=== PATIENT | female | born 1965 | race Caucasian/White ===

== ENCOUNTER 2025-01-23 16:23 | Outpatient (OUT) | payer BC, SELFPAY ==
--- NOTE | 2025-01-23 16:33 | XR_ITS ---
[place] [id number] Patient Name: VICK JEFFERSON MRN: [id number] date: 1965 Sex: F Assigned Patient Location: [facility] Current Patient Location: [facility] Accession/Order Number: [id number] Exam Date: 01/23/2025 16:48 Report Date: 01/23/2025 16:48 At the request of: UNRULY CAPPS DO Procedure: XR chest 2V Plain film chest 2 view HISTORY: Cough COMPARISON: None FINDINGS: SUPPORT DEVICES: None POSTSURGICAL CHANGES: None HEART: Within normal limits PULMONARY DEAN: Within normal limits MEDIASTINUM: Unremarkable LUNGS AND PLEURA: No acute lung process, pleural effusion or pneumothorax identified. BONY STRUCTURES: Mild scoliosis ADDITIONAL FINDINGS None XR/XR chest 2V IMPRESSION: No acute process. Impression dictated by: Murray Diaz M.D. 01/23/2025 4:48 PM [facility] Electron[facility] authenticated by: [id number] Y Date: 01/23/2025 16:48
== END 2025-01-23 16:24 | disposition home or self-care (01) ==
LOC: RAD 16:28
PROVIDERS: PCP Internal Medicine; Visit Provider Internal Medicine
DX: R05.9 Cough, unspecified (principal)
CPT/HCPCS: 71046